=== PATIENT | female | born 1975 | race Caucasian/White ===

== ENCOUNTER → 2017-11-01 | Outpatient (REF) | payer OTHER, MEDICAID | LOC: M LAB REF 17:58 | PROVIDERS: ATTEND Specialist | DX: O02.1 Missed abortion (principal) ==

== ENCOUNTER → 2019-10-30 | Outpatient (CLI) | payer BC | LOC: M PLALAB 15:09 | PROVIDERS: ATTEND Specialist | DX: N91.2 Amenorrhea, unspecified (principal) ==

== ENCOUNTER → 2019-11-27 | Outpatient (CLI) | payer BC ==
[2019-11-27 13:26] LABS: BASO % 0.3 % (0.0-1.0); EOS # 0.1 10^3/uL (0.0-0.5); EOS % 1.3 % (0.0-3.0); HEMATOCRIT 36.1 % (36.0-47.0); HEMOGLOBIN 11.9 g/dl (12.0-15.5); LYMPH # 1.4 10^3/uL (1.5-5.0); LYMPH % 19.2 % (24.0-44.0); MEAN CORPUSCULAR HEMOGLOBIN 29.5 pg (27.0-33.0); MEAN CORPUSCULAR VOLUME 89.4 fl (80.0-96.0); MONO # 0.5 10^3/uL (0.0-0.8); MONO % 6.8 % (0.0-5.0); NEUTROPHILS # 5.1 10^3/uL (1.5-8.5); NEUTROPHILS % 72.1 % (36.0-66.0); PLATELET COUNT, AUTOMATED 246 10^3/uL (150-450); RED BLOOD COUNT 4.04 10^6/uL (4.00-5.40); WHITE BLOOD COUNT 7.1 10^3/uL (4.0-10.0)
[2019-11-27 16:00] LABS: CHLAMYDIA DNA AMPLIFICATION NEGATIVE (NEGATIVE); GC DNA AMPLIFICATION NEGATIVE (NEGATIVE)
[2019-11-30 10:46] LABS: HEPATITIS C VIRUS ABY INDEX 0.2 INDEX (<0.8); HIV 1&2 SCREEN CENTAUR NEGATIVE (NEGATIVE); RUBELLA IgG QUALITATIVE IMMUNE (IMMUNE)
== END ==
LOC: M PLALAB 10:49
PROVIDERS: ATTEND Specialist
DX: Z34.81 Encounter for supervision of other normal pregnancy, first trimester (principal)

== ENCOUNTER → 2020-01-22 | Outpatient (CLI) | payer MEDICAID, OTHER ==
--- NOTE | 2020-01-22 19:51 | REP ---
OB ULTRASOUND: Real-time sonographic evaluation of the gravid uterus performed. There is a single living intrauterine gestation. Estimated gestational age is 18 weeks 1 days based on today's ultrasound, EDC 06/23/2020. BPD 39 mm = 17 weeks 6 days HC 151 mm = 18 weeks 1 day AC 134 mm = 18 weeks 6 days FL 27 mm = 18 weeks 2 days HC/AC ratio 1.13 within normal range of 1.07 to 1.26. Estimated weight 243 grams, is at the 60th percentile. Cervix is closed and measures 4.1 cm in length. heart rate 147 beats per minute. SEEN/GROSSLY UNREMARKABLE Lateral ventricles yes Posterior fossa yes Upper lip yes Four-chamber heart yes LVOT yes RVOT yes Stomach yes Cord insertion yes Three vessel cord yes Kidneys yes Bladder yes Spine yes position: Transverse with head toward the maternal right side. Placenta: Anterior and grade 1 with no previa or abruption. Amniotic fluid: Within normal limits. Anterior fibroid is suspected 1.6 x 1.7 x 1.2 cm.
== END ==
LOC: M WHC 11:02
PROVIDERS: ATTEND Specialist
DX: Z34.82 Encounter for supervision of other normal pregnancy, second trimester (principal); Z3A.18 18 weeks gestation of pregnancy

== ENCOUNTER → 2020-03-12 | Outpatient (REF) | payer MEDICAID, OTHER | LOC: M LABDRWAD 19:14 | PROVIDERS: ATTEND Specialist | DX: Z34.92 Encounter for supervision of normal pregnancy, unspecified, second trimester (principal) ==

== ENCOUNTER 2020-03-23 22:52 | Outpatient (CLI) | payer MEDICAID, OTHER ==
[~2020-03-23] VITALS: Ht 162.6 cm; Wt 110.4 kg
[2020-03-23 23:07] VITALS: BP 135/67
[2020-03-23] MEDS ORDERED: PREN29TA4 PO (23:20)
--- NOTE | 2020-03-24 01:09 | IPNPDOC ---
Text Note Date of Service The patient was seen on 03/24/20. NOTE Subjective: Patient is a 44-year-old female who is a at 28 weeks with an AIDE of 06/15/20 based off of LMP and consistent with her first trimester ultrasound. She initiated care in her first trimester. Her has been complicated by advanced maternal age, hypothyroidism, morbid obesity, uterine fibroids, and a history of a myomectomy. She presents to labor and delivery af ter calling and being instructed to come to the hospital due to lack of movement. She was seen in the office on Tuesday where she had +FM and a FHR of 140. She reports she had appropriate movement on and Tuesday. On Tuesday she reports feeling tired and thought she felt her baby move a few times in the day but only 1 time at 2000 before she fell asleep. She reports that her baby usually moves the most at about 2100 every night. She states today she hasn't felt her baby move at all and became more concerned when 2100 came around and she still didn't feel movement. She denies contractions, vaginal bleeding, or leaking of fluid. Past medical history: hypothyroidism-taking 200 mcg of levothyroxine daily; morbid obesity with BMI of 41, multiple miscarriages, fibroid uterus Past surgeries: myomectomy in 2016; knee; D&C 2006; lap band placed and removed; gallbladder Family history: hypertension, thyroid dysfunction, asthma Social history: former smoker, denies history of alcohol or drug abuse or current use of either. She is but with new partner who is the FOB. Past pregnancies: -07/2019: SAB -10/2007: SAB -05/2005: 42 weeks of living male weighing 7 lbs 13 oz -2002: Ectopic -2000 termination -1999 termination -05/1999: 41 weeks of living female weighing 7 lbs 3 oz -08/1996: 42 weeks of living male weighing 8 lbs Objective: VS and US: see below. No FHR observed via bedside ultrasound. NO heart rate observed via ultrasound report from radiologist. Fetus is valdivia sverse with head to maternal left. EMILY appears to be normal with multiple vertical pockets greater than 2 cm. A+O x3. Respiratory: regular rate and rhythm with no use of accessory muscles. Abdomen: gravid, soft with palpation without any tenderness. Assessment: IUP at 28 weeks gestation with demise Plan: Discussed findings with Dr. Kumari. Recommend patient be discharged to home at this point due to likely occurring within the last 24-48 hours. Patient has a close relationship with Dr. Duncan and he will be on back- up for call tomorrow and primary call Tuesday. A plan will be made for either IOL or for section with Dr. Duncan. Reviewed difficulty with IOL with position. Reviewed with patient and family that there are no apparent findings on ultrasound that may be the cause for the demise. Reviewed options for genetic testing, sending the baby to pathology, burial or cremation options. Given information to discuss and to make a decision on before she comes back to the hospital. Reviewed changes that patient needs to come back to the hospital with including fever, vaginal bleeding, leaking of fluid, or contractions. Patient discharged home to home with SO. VS,Fishbone, I+O VS, Fishbone, I+O Vital Signs Date Time Temp Pulse Resp B/P (MAP) Pulse Ox O2 Delivery O2 Flow Rate FiO2 03/23/20 23:07 97.4 75 135/67 (89) BETO BOONE CNM Mar 24, 2020 01:09
[2020-03-24] MEDS ORDERED: LEVO2TA PO (15:11)
[2020-03-24] MEDS ORDERED: VITA50005 PO (15:13)
[2020-03-24] MEDS ORDERED: OMEP40CA97 PO (15:13)
[2020-03-25] MEDS ORDERED: OXYC1TAB23 PO (17:28)
[2020-03-25] MEDS ORDERED: IBUP-1022 PO (17:29)
--- NOTE | 2020-03-26 05:38 | REP ---
Clinical: No definable heart beat. Comparison: 01/22/2020 Findings: Examination demonstrates a single intrauterine in transverse (head to maternal left) presentation. Placenta is noted right lateral and grade 0 without evidence for placenta previa or abruption. Amniotic fluid volume is normal. Cervix measures 3.9 in length and appears closed. No evidence for nuchal cord. No motion is identified and no cardiac activity is appreciated. Findings are most compatible with demise. Gestational age by first US 26 weeks 6 days with AIDE 06/23/2020 . Gestational age by current measurements 26 weeks 1 day with AIDE 06/28/2020 . Estimated weight 839 grams (14th percentile). Impression: Findings compatible with demise and 26 weeks 1 day gestational age. Electronically Signed by Jose Wylie MD 03/26/2020 05:30 A
== END 2020-03-24 00:40 | disposition home or self-care (01) ==
LOC: M LDO 22:52
PROVIDERS: ATTEND Advanced Practice Midwife
DX: O36.4XX1 Maternal care for intrauterine death, fetus 1 (principal); Z3A.28 28 weeks gestation of pregnancy

== ENCOUNTER 2020-03-25 07:47 | Inpatient (IN) | payer OTHER ==
[~2020-03-25] VITALS: Ht 162.6 cm; Wt 110.6 kg
[2020-03-25] VITALS (7 sets, daily range): BP systolic 111–136; BP diastolic 54–79
[~2020-03-25 07:47] MED LIST: LEVO2TA PO; OMEP40CA97 PO; PREN29TA4 PO; VITA50005 PO
[2020-03-25] MEDS ORDERED: LR 1,000 ML IV SCH ×2 (08:03→13:18)
[2020-03-25] MEDS ORDERED: LACTATED RINGER'S 1000 ML IV STA (08:03)
[2020-03-25] MEDS ORDERED: BICITRA 30ML SOLN UDC PO ONE (08:15)
[2020-03-25] MEDS ORDERED: LORazepam 1 MG TAB PO PRN (08:15)
[2020-03-25] MEDS ORDERED: ceFAZolin SOD 2 GM in IV 1 EA IV ONE (08:15)
[2020-03-25 09:41] LABS: HEMATOCRIT 33.9 % (36.0-47.0); HEMOGLOBIN 11.1 g/dl (12.0-15.5); MEAN CORPUSCULAR HEMOGLOBIN 30.4 pg (27.0-33.0); MEAN CORPUSCULAR HGB CONC 32.7 g/dl (32.0-36.5); MEAN CORPUSCULAR VOLUME 92.9 fl (80.0-96.0); PLATELET COUNT, AUTOMATED 278 10^3/uL (150-450); RED BLOOD COUNT 3.65 10^6/uL (4.00-5.40); WHITE BLOOD COUNT 7.9 10^3/uL (4.0-10.0)
[2020-03-25 10:04] LABS: ALT/SGPT 27 U/L (12-78); BILIRUBIN,TOTAL 0.3 MG/DL (0.2-1.0); CREATININE FOR GFR 0.51 MG/DL (0.55-1.30); GLOMERULAR FILTRATION RATE > 60.0 (>58); LDH LACTATE DEHYDROGENASE 137 U/L (84-246); THYROXINE (T4) 15.9 UG/DL (4.5-12.0); URIC ACID 2.3 MG/DL (2.6-6.0)
[2020-03-25 10:10] LABS: AMPHETAMINES URINE REFLEX NEGATIVE (NEGATIVE); BARBITURATES URINE REFLEX NEGATIVE (NEGATIVE); BENZODIAZEPINES URINE REFLEX NEGATIVE (NEGATIVE); CANNABINOIDS URINE REFLEX NEGATIVE (NEGATIVE); COCAINE METABOLITE URINE REFLE NEGATIVE (NEGATIVE); METHADONE URINE REFLEX NEGATIVE (NEGATIVE); OPIATES URINE REFLEX NEGATIVE (NEGATIVE); PHENCYCLIDINE URINE REFLEX NEGATIVE (NEGATIVE)
[2020-03-25] MEDS ORDERED: MORPHINE PRES-FREE INJ 10 MG/10 ML VIAL (J2274) As Ordered ONE (10:24)
[2020-03-25] MEDS ORDERED: OXYTOCIN 30 UNITS IN 0.9% NaCl 500ML IV BAG (J2590) As Ordered ONE ×2 (10:25→13:28)
[2020-03-25] MEDS ORDERED: NALOXONE INJ 0.4MG/1ML VIAL (J2310 PER 1MG) IV PRN ×4 (11:49)
[2020-03-25] MEDS ORDERED: NALBUPHINE HCL 10 MG/ML AMP (J2300) IV PRN ×2 (11:49)
[2020-03-25] MEDS ORDERED: ONDANSETRON 4MG/2ML VIAL IV PRN ×5 (11:49→13:30)
[2020-03-25] MEDS ORDERED: diphenhydrAMINE 50MG/ML VIAL (J1200) IV PRN ×2 (11:49)
[2020-03-25] MEDS ORDERED: METOCLOPRAMIDE INJ 10MG/2ML VIAL (J2765 PER 1) IV PRN ×2 (11:49)
[2020-03-25] MEDS ORDERED: PHENYLephrine HCL 500 MCG/5 ML (100MCG/ML) SYRINGE (J2370) As Ordered ONE (11:57)
[2020-03-25] MEDS ORDERED: ePHEDrine SULFATE 25 MG/5 ML(5MG/ML) SYRINGE As Ordered ONE (11:59)
[2020-03-25] MEDS ORDERED: ONDANSETRON 4MG/2ML VIAL As Ordered ONE (12:10)
[2020-03-25] MEDS ORDERED: KETOROLAC 60 MG/2 ML VIAL As Ordered ONE (12:10)
[2020-03-25] MEDS ORDERED: fentaNYL 100 MCG/2 ML INJECTION (J3010) IV PRN ×2 (13:15→13:30)
[2020-03-25] MEDS ORDERED: OXYTOCIN DRIP 30 UNITS in IV 1 EA IV SCH (13:18)
[2020-03-25] MEDS ORDERED: PERCOCET 5MG/325MG TAB PO PRN (13:30)
[2020-03-25] MEDS ORDERED: DOCUSATE SODIUM 100 MG CAP PO PRN (13:30)
[2020-03-25] MEDS ORDERED: MEASLES,MUMPS,RUBELLA VACCINE INJ (MMR-II) (90707) SC SCH (13:30)
[2020-03-25] MEDS ORDERED: RHOGAM 300 MCG (1500 IU) INJ (J2790) IM SCH (13:30)
[2020-03-25] MEDS: PERCOCET 5MG/325MG TAB PO PRN ×2 (14:50→21:26)
[2020-03-25] MEDS ORDERED: OXYC1TAB23 PO (17:28)
[2020-03-25] MEDS ORDERED: IBUP-1022 PO (17:29)
[2020-03-25] MEDS ORDERED: KETOROLAC 30 MG/ML 1ML VIAL IV SCH (18:00)
[2020-03-25] MEDS ORDERED: MAG Sulf (OBGYN) 20GM/500ML 20,000 MG in IV 1 EA IV SCH (18:30)
[2020-03-26] MEDS ORDERED: PRENATAL VITAMINS CHEWABLE TABLET PO SCH (09:00)
--- NOTE | 2020-03-26 11:27 | RO ---
DATE OF PROCEDURE: 03/25/2020 PREPROCEDURE DIAGNOSIS: 28 and 2/7 weeks intrauterine demise, transverse lie, prior myomectomy. POSTPROCEDURE DIAGNOSIS: 28 and 2/7 weeks intrauterine demise, transverse lie, prior myomectomy. PROCEDURE: Primary low transverse section. SURGEON: Dr. Perry Duncan UNIFIED COMMUNICATIONS ENGINEER: Rosalee Braden CNM ANESTHESIA: Spinal. ESTIMATED BLOOD LOSS: 700 mL. URINE OUTPUT: 10 mL. IV FLUIDS: 1000 mL. FINDINGS: 1 pound 8 ounce female infant, nonviable, evidence of maceration. 1 cm stricture of the umbilical cord at the insertion to the umbilicus with torsion around the stricture. Normal placenta. Normal uterus, fallopian tubes and ovaries. DESCRIPTION OF PROCEDURE: The patient was taken to the operating room where spinal anesthesia was induced. She was prepped and draped in sterile fashion in the supine position. A Tripp catheter was placed. A Pfannenstiel skin incision was made with the scalpel and carried through to the fascia. The fascia was nicked and extended. The fascia was dissected off the rectus muscles. The peritoneal cavity was entered. Adhesions of the uterus to the anterior abdominal wall were taken down sharply. Mobius retractor was placed. A curvilinear incision was made in the lower uterine segment until bulging membranes were noted. This was extended with bandage scissors. Membranes were ruptured with green tinted fluid noted. The was delivered from the breech position using standard maneuvers. The cord was doubly clamped and cut. The infant was handed off to the awaiting nurses. The placenta was expressed. The uterus was exteriorized. The uterus was closed with #0 Vicryl in a running locked fashion. A second imbricating layer of #0 Vicryl was placed. The uterus was placed back in the abdominal cavity. There was subtle mild bleeding from several areas. Rosa Elena was placed over the raw surface areas. Good hemostasis was noted. The Mobius retractor was removed. The peritoneum was closed with #2-0 Vicryl. The fascia was closed with #0 Vicryl in a running fashion. The deep layer was closed with #3-0 chromic. The skin was closed with #4-0 Monocryl subcuticular sutures. Sponge, instrument and needle counts were correct. Rosalee Okeefe CNM, assisted throughout the procedure from beginning to end. She helped create each layer of the incision. She helped deliver the fetus and close all subsequent layers. She was indispensable to the successful completion of the procedure.
[2020-03-26] MEDS ORDERED: IBUPROFEN 800 MG TAB PO SCH (14:00)
--- NOTE | 2020-03-26 16:07 | DSES ---
DATE OF ADMISSION: 03/25/2020 DATE OF DISCHARGE: 03/25/2020 A 44-year-old female presents for section due to 28-week intrauterine demise. Fetus is in transverse lie. Patient has a history of a prior myomectomy. She was previously scheduled for for delivery. She is emotionally unprepared to go through an attempt at vaginal delivery. HOSPITAL COURSE: Patient was admitted on 03/25/2020. She underwent primary low transverse section of a 1-pound 8-ounce nonviable female infant. Intraoperative findings were significant for a stricture with torsion of the umbilical cord at the umbilicus. This was the presumed cause of the demise. Postoperatively, the patient did well. She had adequate return of bladder and bowel function. Her pain management was adequate. She strongly desired discharge on the day of surgery late that same evening. This request is understandable given the situation. The decision was made that she was stable for discharge. ADMISSION DIAGNOSIS: , 28 weeks, intrauterine demise. DISCHARGE DIAGNOSIS: Delivered. PROCEDURE: Primary low transverse section. DISPOSITION: Patient will followup with Dr. Duncan in 2 weeks. Instructions were reviewed. Workup for intrauterine demise is ongoing.
[2020-03-27 00:07] LABS: CARDIOLIPIN IGA ANTIBODY <9 APL U/mL (0-11); CARDIOLIPIN IGG ANTIBODY <9 GPL U/mL (0-14); CARDIOLIPIN IGM ANTIBODY <9 MPL U/mL (0-12); HERPES ZOSTER, VARICELLA IgG 198 index (Immune >165); HERPES ZOSTER, VARICELLA IgM <0.91 index (0.00-0.90)
[2020-03-27 06:50] LABS: ANTI PARVO VIRUS LEVEL IGG 0.1 index (0.0-0.8); ANTI PARVO VIRUS LEVEL IgM 0.1 index (0.0-0.8); BETA-2 GLYCOPROTEIN I ABY IGA <9 (0-25); BETA-2 GLYCOPROTEIN I ABY IGG <9 (0-20); BETA-2 GLYCOPROTEIN I ABY IGM <9 (0-32)
== END 2020-03-25 21:40 | disposition home or self-care (01) | DRG 540 ==
LOC: M LDI 07:47 → M OBS 14:22
PROVIDERS: ADMIT Specialist; ATTEND Specialist
PROC: 10D00Z1 Extraction of Products of Conception, Low, Open Approach (ICD-10-PCS; principal; 2020-03-25 09:30)
DX: O69.89X0 Labor and delivery complicated by other cord complications, not applicable or unspecified (principal); Z37.1 Single stillbirth; Z3A.28 28 weeks gestation of pregnancy; O32.2XX0 Maternal care for transverse and oblique lie, not applicable or unspecified; O09.523 Supervision of elderly multigravida, third trimester

== ENCOUNTER → 2020-10-14 | Outpatient (REF) | payer OTHER, MEDICAID ==
[~2020-10-14] MED LIST changes: +IBUP-1022 PO; +OXYC1TAB23 PO
== END ==
LOC: M SFHCWAGY 16:56
PROVIDERS: ATTEND Specialist
DX: Z01.419 Encounter for gynecological examination (general) (routine) without abnormal findings (principal)

== ENCOUNTER → 2020-11-06 | Outpatient (REF) | payer OTHER, MEDICAID ==
[2020-11-06 17:47] LABS: HEMATOCRIT 36.7 % (36.0-47.0); HEMOGLOBIN 10.9 g/dl (12.0-15.5); MEAN CORPUSCULAR HEMOGLOBIN 26.1 pg (27.0-33.0); MEAN CORPUSCULAR HGB CONC 29.7 g/dl (32.0-36.5); PLATELET COUNT, AUTOMATED 331 10^3/uL (150-450); RED BLOOD COUNT 4.17 10^6/uL (4.00-5.40); WHITE BLOOD COUNT 6.5 10^3/uL (4.0-10.0)
[2020-11-06 18:40] LABS: ALBUMIN 3.4 GM/DL (3.2-5.2); ALT/SGPT 22 U/L (12-78); BILIRUBIN,TOTAL 0.2 MG/DL (0.2-1.0); BLOOD UREA NITROGEN 17 MG/DL (7-18); CALCIUM LEVEL 9.1 MG/DL (8.5-10.1); CARBON DIOXIDE LEVEL 29 MEQ/L (21-32); CHLORIDE LEVEL 108 MEQ/L (98-107); GLOMERULAR FILTRATION RATE > 60.0 (>58); GLUCOSE, FASTING 73 MG/DL (70-100); POTASSIUM SERUM 4.3 MEQ/L (3.5-5.1); SODIUM LEVEL 140 MEQ/L (136-145); THYROID STIMULATING HORMONE 0.174 uIU/ML (0.358-3.740); TOTAL PROTEIN 6.8 GM/DL (6.4-8.2)
== END ==
LOC: M PLALAB 14:29
PROVIDERS: ATTEND Specialist
DX: R23.8 Other skin changes (principal)

== ENCOUNTER → 2020-11-06 | Outpatient (CLI) | payer OTHER ==
--- NOTE | 2020-11-10 10:55 | REPMRS ---
Patient History The patient states she has not had a clinical breast exam in over a year. Family history of unknown cancer in maternal grandfather. Digital Woman Screen Mammo: November 06, 2020 - Exam #: [id number] Bilateral CC and MLO view(s) were taken. Technologist: Marilyn Roth, Technologist Prior study comparison: March 30, 2019, bilateral digital woman screen mammo, performed at [facility]. FINDINGS: There are scattered fibroglandular densities. The Volpara volumetric breast density category is:B. There has been no change in the appearance of the mammogram from the prior studies. There is a mild amount of scattered fibroglandular density which is fairly symmetric. There is no interval development of dominant mass, architectural distortion, or grouped microcalcification suggestive of malignancy. 3-D tomosynthesis shows no additional findings. Assessment: BI-RADS/ACR category 1 mammogram. Negative Mammogram. Recommendation Routine screening mammogram of both breasts in 1 year (for women over age 40). This patient's [facility] Lifetime Breast Cancer Risk is estimated at 9.9 %. This mammogram was interpreted with the aid of an FDA-approved computer-aided dectection system. Electronically Signed By: Ander Madera MD 11/10/20 [id number]
== END ==
LOC: M WHC 14:51
PROVIDERS: ATTEND Specialist
DX: Z12.31 Encounter for screening mammogram for malignant neoplasm of breast (principal)

== ENCOUNTER → 2021-06-15 | Outpatient (CLI) | payer OTHER ==
[~2021-06-15] MED LIST changes: +ERGO500029 PO; +OMEP40CA4 PO; -OMEP40CA97 PO; -VITA50005 PO
== END ==
LOC: M LAB 12:11
PROVIDERS: ATTEND Family Medicine
DX: N92.6 Irregular menstruation, unspecified (principal)

== ENCOUNTER → 2021-07-08 | Outpatient (REF) | payer OTHER, MEDICAID | LOC: M PLALAB 16:43 | PROVIDERS: ATTEND Specialist | DX: N92.6 Irregular menstruation, unspecified (principal) ==

== ENCOUNTER → 2021-07-16 | Outpatient (CLI) | payer OTHER | LOC: M LAB 14:31 | PROVIDERS: ATTEND Specialist | DX: N92.6 Irregular menstruation, unspecified (principal) ==

== ENCOUNTER → 2021-08-24 | Outpatient (CLI) | payer OTHER, MEDICAID ==
[2021-08-25 16:09] LABS: CARDIOLIPIN IGA ANTIBODY <9 APL U/mL (0-11); CARDIOLIPIN IGG ANTIBODY <9 GPL U/mL (0-14); CARDIOLIPIN IGM ANTIBODY <9 MPL U/mL (0-12); CYTOMEGALOVIRUS IgG ANTIBODY >10.00 U/mL (0.00-0.59); CYTOMEGALOVIRUS IgM ANTIBODY <30.0 AU/mL (0.0-29.9); TOXOPLASMA IgG ABY 5.8 IU/mL (0.0-7.1)
== END ==
LOC: M PLALAB 10:38
PROVIDERS: ATTEND Specialist
DX: N92.6 Irregular menstruation, unspecified (principal)

== ENCOUNTER → 2021-09-07 | Outpatient (CLI) | payer OTHER | LOC: M LABSMTC 11:57 | PROVIDERS: ATTEND Pediatrics | DX: Z20.822 Contact with and (suspected) exposure to COVID-19 (principal) ==

== ENCOUNTER → 2021-09-30 | Outpatient (CLI) | payer OTHER | LOC: M WHC 09:11 | PROVIDERS: ATTEND Specialist | DX: Z12.31 Encounter for screening mammogram for malignant neoplasm of breast (principal) ==

== ENCOUNTER → 2021-10-20 | Outpatient (REF) | payer OTHER, MEDICAID | LOC: M SFHCWAGY 17:11 | PROVIDERS: ATTEND Specialist | DX: Z12.4 Encounter for screening for malignant neoplasm of cervix (principal) ==

== ENCOUNTER → 2021-11-11 | Outpatient (CLI) | payer OTHER ==
--- NOTE | 2021-11-12 13:54 | REPMRS ---
Patient History The patient states she had a clinical breast exam in 09/2021. No known family history of cancer. No Hormone Replacement Therapy Patient states no breast complaints today. Patient has signed MRS History Sheet. Digital Woman Screen Mammo: November 11, 2021 - Exam #: [id number] Bilateral CC and MLO view(s) were taken. Technologist: Brittney Vieira, Technologist Prior study comparison: November 06, 2020, bilateral digital woman screen mammo performed at [facility]. March 30, 2019, bilateral digital woman screen mammo, performed at [facility]. FINDINGS: There are scattered fibroglandular densities. Screening. Digital screening (2D) mammography was performed bilaterally in the CC and MLO projections. Additionally, breast tomosynthesis (3D mammography) was performed bilaterally in the CC and MLO projections. Todays exam was compared to the prior exam/exams. By history, the patient has no complaints of a palpable breast abnormality or other significant breast complaints. The breasts are unchanged in size and shape. There are no lew-soft tissue densities or spiculated masses. There is no internal architectural distortion. There are no suspicious lew-calcific clusters. Skin thickening or nipple retraction is not present. IMPRESSION: BI-RADS Category 2- Benign Findings. There is no evidence of malignant alteration of the breasts. Followup examination recommended in one year. The Volpara volumetric breast density category is B, there are scattered areas of fibroglandular densities. This mammogram was read with the assistance of nivio,an FDA approved computer aided detection system for mammography. The lifetime Tyrer-Cuzick score is 9.8 % Negative x-ray reports should not delay surgical consultation if a dominant or clinically suspicious mass is present. Not all breast cancers can be identified by mammography. Therefore, we recommend that you continue to perform regular breast self-examination and physical examination and then promptly contact your physician of any concerns or changes. Adenosis and dense breasts may obscure an underlying neoplasm. Assessment: BI-RADS/ACR category 2 mammogram. Benign Findings. Recommendation Routine screening mammogram of both breasts in 1 year. Electronically Signed By: Jorge Archuleta DO 11/12/21 [id number]
== END ==
LOC: M WHC 16:02
PROVIDERS: ATTEND Specialist
DX: Z12.31 Encounter for screening mammogram for malignant neoplasm of breast (principal)

== ENCOUNTER → 2022-10-15 | Outpatient (REF) | payer OTHER, MEDICAID | LOC: M SFHCWAGY 13:46 | PROVIDERS: ATTEND Specialist | DX: Z01.419 Encounter for gynecological examination (general) (routine) without abnormal findings (principal); Z12.4 Encounter for screening for malignant neoplasm of cervix ==

== ENCOUNTER → 2022-10-15 | Outpatient (CLI) | payer OTHER | LOC: M WHC 07:53 | PROVIDERS: ATTEND Specialist | DX: Z12.31 Encounter for screening mammogram for malignant neoplasm of breast (principal); R92.8 Other abnormal and inconclusive findings on diagnostic imaging of breast ==

== ENCOUNTER → 2022-11-03 | Outpatient (CLI) | payer OTHER | LOC: M WHC 10:19 | PROVIDERS: ATTEND Specialist | DX: R92.8 Other abnormal and inconclusive findings on diagnostic imaging of breast (principal) ==

== ENCOUNTER → 2023-11-01 | Outpatient (CLI) | payer OTHER | LOC: M WHC 15:34 | PROVIDERS: ATTEND Specialist | DX: Z12.31 Encounter for screening mammogram for malignant neoplasm of breast (principal); R92.333 Mammographic heterogeneous density, bilateral breasts ==

== ENCOUNTER → 2023-11-01 | Outpatient (REF) | payer OTHER, MEDICAID | LOC: M PLALAB 16:05 | PROVIDERS: ATTEND Specialist | DX: Z12.4 Encounter for screening for malignant neoplasm of cervix (principal) ==

== ENCOUNTER 2024-06-18 17:23 | Emergency (ER) | payer MEDICAID, OTHER ==
[~2024-06-18] VITALS: Ht 162.6 cm; Wt 103.7 kg
[2024-06-18] MEDS ORDERED: [UNRECOGNIZED DRUG - CODE] (18:18)
[2024-06-18] MEDS ORDERED: CYAN1000VL (18:18)
[2024-06-18] MEDS ORDERED: TIRZ7.5P3 (18:18)
[2024-06-18] MEDS ORDERED: ERGO500029 (18:18)
[2024-06-18] MEDS: PANTOPRAZOLE 40MG VIAL IV ONE (20:10)
[2024-06-18] MEDS: NS 1,000 ML IV ONE (20:11)
[2024-06-18] MEDS ORDERED: ISOVUE-370 76% 100ML VIAL As Ordered ONE (20:15)
[2024-06-18 20:28] LABS: BASO % 0.6 % (0.0-1.0); EOS # 0.1 10^3/uL (0.0-0.5); HEMATOCRIT 37.3 % (36.0-47.0); HEMOGLOBIN 12.1 g/dl (12.0-15.5); LYMPH # 1.9 10^3/uL (1.5-5.0); LYMPH % 37.4 % (24.0-44.0); MEAN CORPUSCULAR HEMOGLOBIN 29.3 pg (27.0-33.0); MEAN CORPUSCULAR HGB CONC 32.4 g/dl (32.0-36.5); MEAN CORPUSCULAR VOLUME 90.3 fl (80.0-96.0); MONO # 0.4 10^3/uL (0.0-0.8); NEUTROPHILS # 2.7 10^3/uL (1.5-8.5); NEUTROPHILS % 53.8 % (36.0-66.0); PLATELET COUNT, AUTOMATED 284 10^3/uL (150-450); RED BLOOD COUNT 4.13 10^6/uL (4.00-5.40)
[2024-06-18 21:00] LABS: C REACTIVE PROTEIN QUANTITATIV < 0.40 MG/DL (<1.0)
[2024-06-18 21:01] LABS: BLOOD UREA NITROGEN 10 MG/DL (9-23); CALCIUM LEVEL 9.1 MG/DL (8.5-10.1); CARBON DIOXIDE LEVEL 31 MMOL/L (20-31); CHLORIDE LEVEL 105 MMOL/L (98-107); CREATININE FOR GFR 0.74 MG/DL (0.55-1.30); GLOMERULAR FILTRATION RATE > 60.0 (>58); GLUCOSE, FASTING 83 MG/DL (60-100); POTASSIUM SERUM 3.5 MMOL/L (3.5-5.1); SODIUM LEVEL 141 MMOL/L (136-145)
[2024-06-18 21:03] LABS: FREE T4 0.83 NG/DL (0.89-1.76)
[2024-06-18 21:04] LABS: THYROID STIMULATING HORMONE 8.871 uIU/ML (0.55-4.78)
[2024-06-18] MEDS: FAMOTIDINE IV BAG 20 MG in IV 1 EA IV ONE (23:35)
[2024-06-18] MEDS: SUCRALFATE SUSP 1GM/10ML UD PO ONE (23:35)
[2024-06-18] MEDS ORDERED: SUCR1SS PO (23:36)
[2024-06-18] MEDS ORDERED: PEPC1TAB5 PO (23:36)
[2024-06-19 00:05] VITALS: BP 125/71; TEMP 98.3; O2SAT 100
== END 2024-06-19 00:10 | disposition home or self-care (01) ==
LOC: M ED 17:23
DX: R09.A2 Foreign body sensation, throat (principal); Z98.84 Bariatric surgery status; E66.9 Obesity, unspecified; E06.3 Autoimmune thyroiditis; E05.00 Thyrotoxicosis with diffuse goiter without thyrotoxic crisis or storm; Z79.899 Other long term (current) drug therapy; Z88.0 Allergy status to penicillin; Z88.5 Allergy status to narcotic agent
CPT/HCPCS: 70491; 80048; 84439; 84443; 85025; 86140; 96361; 96374; 99284; J2470; Q9967

== ENCOUNTER → 2024-11-19 | Outpatient (CLI) | payer OTHER ==
[~2024-11-19] MED LIST changes: +CYAN1000VL; +ERGO500029; +PEPC1TAB5 PO; +SUCR1SS PO; +TIRZ7.5P3; +[UNRECOGNIZED DRUG - CODE]
== END ==
LOC: M WHC 12:58
PROVIDERS: ATTEND Specialist
DX: Z12.31 Encounter for screening mammogram for malignant neoplasm of breast (principal); R92.323 Mammographic fibroglandular density, bilateral breasts

== ENCOUNTER → 2024-11-19 | Outpatient (REF) | payer OTHER ==
[2024-11-23 10:57] LABS: HPV APTIMA Not Detected (Not Detected)
== END ==
LOC: M PLALAB 13:44
PROVIDERS: ATTEND Specialist
DX: Z12.4 Encounter for screening for malignant neoplasm of cervix (principal)